=== PATIENT | female | born 1945 | race Caucasian/White ===

== ENCOUNTER 2023-02-05 10:05 | Inpatient (IN) | payer MEDICARE, OTHER ==
[~2023-02-05] VITALS: Ht 162.6 cm; Wt 83.9 kg
[2023-02-05 11:30] LABS: BASOPHILS % (AUTO) 0.1 % (0.0-2.0); EOSINOPHILS # (AUTO) 0.1 K/uL (0.0-0.7); EOSINOPHILS % (AUTO) 0.6 % (0.0-6.0); HEMATOCRIT 43 % (33-45); HEMOGLOBIN 13.9 g/dL (11.5-14.8); LYMPHOCYTES # (AUTO) 2.1 K/uL (0.8-4.8); LYMPHOCYTES % (AUTO) 19.1 % (20.0-44.0); MEAN CORPUSCULAR HEMOGLOBIN 29 PG (26.0-33.0); MEAN CORPUSCULAR HGB CONC 33 g/dl (31.0-36.0); MEAN CORPUSCULAR VOLUME 87 fL (82-100); MONOCYTES # (AUTO) 0.8 K/uL (0.1-1.30); MONOCYTES % (AUTO) 7.6 % (2.0-12.0); NEUTROPHILS # (AUTO) 7.9 K/uL (1.8-8.9); NEUTROPHILS % (AUTO) 72.6 % (43.0-81.0); PLATELET COUNT (AUTO) 197 K/uL (150-450); RED BLOOD CELL COUNT(AUTO) 4.86 MIL/uL (4.0-5.2); RED CELL DISTRIBUTION WIDTH 14.1 % (11.5-15.0); WHITE BLOOD COUNT (AUTO) 10.9 K/uL (4.3-11.0)
[2023-02-05 11:40] LABS: INR 0.96 (0.91-1.10); PARTIAL THROMBOPLASTIN TIME 26.9 SEC (24.3-34.3); PROTHROMBIN TIME 10.2 SECS (9.2-11.1)
[2023-02-05 11:44] LABS: ALANINE AMINOTRANSFERASE 26 U/L (12-78); ALBUMIN 3.5 g/dL (3.4-5.0); ALKALINE PHOSPHATASE 73 U/L (46-116); ASPARTATE AMINOTRANSFERASE 7 U/L (15-37); BILIRUBIN,DIRECT 0.1 mg/dL (0.0-0.2); BILIRUBIN,TOTAL 0.3 mg/dL (0.2-1.0); CALCIUM, SERUM 9.5 mg/dL (8.5-10.1); CARBON DIOXIDE 27 mmol/L (21-32); CHLORIDE 103 mmol/L (98-107); CREATININE 0.8 mg/dL (0.6-1.3); GLUCOSE 317 mg/dL (74-106); POTASSIUM 3.9 mmol/L (3.5-5.1); SODIUM SERUM 140 mmol/L (136-145); TOTAL PROTEIN, SERUM 7.5 g/dL (6.4-8.2); UREA NITROGEN, BLOOD 30 mg/dL (7-18)
[2023-02-05] MEDS ORDERED: ACET-868 PO (12:00)
[2023-02-05] MEDS ORDERED: BISA10SU11 RC (12:00)
[2023-02-05] MEDS ORDERED: CLON0.1T PO (12:00)
[2023-02-05] MEDS ORDERED: BENA20TA9 PO (12:00)
[2023-02-05] MEDS ORDERED: NA P133E RC (12:00)
[2023-02-05] MEDS ORDERED: DOCU-141 PO (12:00)
[2023-02-05] MEDS ORDERED: MELA3TAB41 PO (12:00)
[2023-02-05] MEDS ORDERED: MULT-447 PO (12:00)
[2023-02-05] MEDS ORDERED: POLY17PO4 PO (12:00)
[2023-02-05] MEDS ORDERED: AMLO-212 PO (12:00)
[2023-02-05] MEDS ORDERED: LACT-215 PO (12:00)
[2023-02-05] MEDS ORDERED: MAGN400O6 PO (12:00)
[2023-02-05] MEDS ORDERED: ROSU10TA2 PO (12:00)
[2023-02-05] MEDS ORDERED: FLUO10TA PO (12:00)
[2023-02-05] MEDS ORDERED: MEMA28CA PO (12:00)
[2023-02-05] MEDS ORDERED: GUAI100S11 PO (12:00)
[2023-02-05] MEDS ORDERED: DONE10TA44 PO (12:00)
[2023-02-05] MEDS ORDERED: ACETAMINOPHEN 325 MG TABLET PO PRN (13:30)
[2023-02-05] MEDS ORDERED: BISACODYL SUPP (10 MG) 10 MG/SUPP.RECT SUPP.RECT RC PRN (13:30)
[2023-02-05] MEDS ORDERED: GUAIFENESIN 300 MG/15 ML UDC PO PRN (13:30)
[2023-02-05] MEDS ORDERED: ONDANSETRON HCL/PF 4 MG/2 ML VIAL IVP PRN (13:30)
[2023-02-05] MEDS ORDERED: MAG HYDROX/AL HYDROX/SIMETH 30 ML UDC PO PRN (13:30)
[2023-02-05] MEDS ORDERED: MAGNESIUM HYDROXIDE 30 ML UDC PO PRN (13:30)
[2023-02-05] MEDS ORDERED: Z GUARD REMEDY 4 OZ OINT TP PRN (13:30)
[2023-02-05] MEDS ORDERED: DEXTROSE 50%-WATER 50 ML DISP.SYRIN IV PRN (14:00)
[2023-02-05] MEDS: IV 1/2NS 1000 ML 1,000 ML IV PRN (16:13)
[2023-02-05] MEDS: MEMANTINE HCL 5 MG TABLET PO SCH (16:17)
[2023-02-05] MEDS ORDERED: BOOST FOOD- BERRY 237 ML BOX PO SCH (17:00)
[2023-02-05] MEDS: ENSURE CLEAR 237 ML LIQUID (MIX BERRY) PO SCH (17:00)
[2023-02-05] MEDS ORDERED: BLOOD SUGAR DIAGNOSTIC 1 EACH STRIP VI SCH (17:30)
[2023-02-05 20:00] VITALS: BP 132/79; TEMP 98; O2SAT 100
[2023-02-05] MEDS: ATORVASTATIN 10 MG TABLET PO SCH (21:46)
[2023-02-05] MEDS: BENAZEPRIL HCL 20 MG TABLET PO SCH (21:46)
[2023-02-05] MEDS ORDERED: DONEPEZIL 5 MG TABLET PO SCH (22:00)
[2023-02-05] MEDS ORDERED: Medication Not On Formulary EA (Melatonin 3 MG) PO SCH (22:00)
[2023-02-06 04:00] VITALS: BP 130/70; TEMP 98; O2SAT 100
[2023-02-06] MEDS: IV 1/2NS 1000 ML 1,000 ML IV PRN (05:14)
[2023-02-06 06:58] LABS: BASOPHILS # (AUTO) 0.1 K/uL (0.0-0.2); BASOPHILS % (AUTO) 0.6 % (0.0-2.0); EOSINOPHILS # (AUTO) 0.2 K/uL (0.0-0.7); EOSINOPHILS % (AUTO) 1.9 % (0.0-6.0); HEMATOCRIT 44 % (33-45); HEMOGLOBIN 14.2 g/dL (11.5-14.8); LYMPHOCYTES # (AUTO) 1.8 K/uL (0.8-4.8); LYMPHOCYTES % (AUTO) 17.5 % (20.0-44.0); MEAN CORPUSCULAR HEMOGLOBIN 29 PG (26.0-33.0); MEAN CORPUSCULAR HGB CONC 32 g/dl (31.0-36.0); MEAN CORPUSCULAR VOLUME 88 fL (82-100); MONOCYTES # (AUTO) 0.8 K/uL (0.1-1.30); MONOCYTES % (AUTO) 7.8 % (2.0-12.0); NEUTROPHILS # (AUTO) 7.3 K/uL (1.8-8.9); NEUTROPHILS % (AUTO) 72.2 % (43.0-81.0); PLATELET COUNT (AUTO) 178 K/uL (150-450); RED BLOOD CELL COUNT(AUTO) 4.99 MIL/uL (4.0-5.2); RED CELL DISTRIBUTION WIDTH 14.4 % (11.5-15.0); WHITE BLOOD COUNT (AUTO) 10.1 K/uL (4.3-11.0)
[2023-02-06 07:22] LABS: ALBUMIN 3.5 g/dL (3.4-5.0); BILIRUBIN,TOTAL 0.5 mg/dL (0.2-1.0); CALCIUM, SERUM 9.3 mg/dL (8.5-10.1); CREATININE 0.7 mg/dL (0.6-1.3); POTASSIUM 3.7 mmol/L (3.5-5.1); TOTAL PROTEIN, SERUM 7.5 g/dL (6.4-8.2)
[2023-02-06 08:00] VITALS: BP 123/69; TEMP 97.7; O2SAT 95
[2023-02-06] MEDS ORDERED: DOCUSATE SODIUM 100 MG CAPSULE PO SCH (09:00)
[2023-02-06] MEDS: ENSURE CLEAR 237 ML LIQUID (MIX BERRY) PO SCH ×2 (09:44→17:00)
[2023-02-06] MEDS: AMLODIPINE BESYLATE 5 MG TABLET PO SCH (09:46)
[2023-02-06] MEDS: MULTIVIT W/MINERALS 1 TAB TABLET PO SCH (09:46)
[2023-02-06] MEDS: MEMANTINE HCL 5 MG TABLET PO SCH ×2 (09:46→16:12)
[2023-02-06] MEDS: Fluoxetine 10 mg capsule PO SCH (09:46)
[2023-02-06 16:00] VITALS: BP 133/76; TEMP 97.5; O2SAT 95
[2023-02-06] MEDS: BENAZEPRIL HCL 20 MG TABLET PO SCH (21:13)
[2023-02-06] MEDS: ATORVASTATIN 10 MG TABLET PO SCH (21:13)
[2023-02-07] VITALS: BP 122/69; TEMP 97.9; O2SAT 95
[2023-02-07] MEDS: IV 1/2NS 1000 ML 1,000 ML IV PRN ×2 (05:24→22:57)
[2023-02-07 07:15] LABS: HEMATOCRIT 42 % (33-45); HEMOGLOBIN 13.9 g/dL (11.5-14.8); MEAN CORPUSCULAR HEMOGLOBIN 29 PG (26.0-33.0); MEAN CORPUSCULAR HGB CONC 33 g/dl (31.0-36.0); MEAN CORPUSCULAR VOLUME 88 fL (82-100); RED BLOOD CELL COUNT(AUTO) 4.79 MIL/uL (4.0-5.2); RED CELL DISTRIBUTION WIDTH 14.6 % (11.5-15.0); WHITE BLOOD COUNT (AUTO) 8.7 K/uL (4.3-11.0)
[2023-02-07 07:16] LABS: BASOPHILS % (AUTO) 0.2 % (0.0-2.0); EOSINOPHILS # (AUTO) 0.2 K/uL (0.0-0.7); EOSINOPHILS % (AUTO) 2.5 % (0.0-6.0); LYMPHOCYTES % (AUTO) 22.6 % (20.0-44.0); MONOCYTES # (AUTO) 0.7 K/uL (0.1-1.30); MONOCYTES % (AUTO) 7.9 % (2.0-12.0); NEUTROPHILS # (AUTO) 5.8 K/uL (1.8-8.9); NEUTROPHILS % (AUTO) 66.8 % (43.0-81.0); PLATELET COUNT (AUTO) 165 K/uL (150-450)
[2023-02-07 07:40] LABS: CALCIUM, SERUM 8.5 mg/dL (8.5-10.1); CARBON DIOXIDE 26 mmol/L (21-32); CHLORIDE 101 mmol/L (98-107); CREATININE 0.7 mg/dL (0.6-1.3); GLUCOSE 219 mg/dL (74-106); POTASSIUM 3.4 mmol/L (3.5-5.1); SODIUM SERUM 137 mmol/L (136-145); UREA NITROGEN, BLOOD 20 mg/dL (7-18)
[2023-02-07 08:00] VITALS: BP 101/67; TEMP 98.2; O2SAT 95
[2023-02-07] MEDS: ENSURE CLEAR 237 ML LIQUID (MIX BERRY) PO SCH ×2 (08:19→17:04)
[2023-02-07] MEDS: Fluoxetine 10 mg capsule PO SCH (09:49)
[2023-02-07] MEDS: AMLODIPINE BESYLATE 5 MG TABLET PO SCH (09:49)
[2023-02-07] MEDS: MULTIVIT W/MINERALS 1 TAB TABLET PO SCH (09:49)
[2023-02-07] MEDS: MEMANTINE HCL 5 MG TABLET PO SCH ×2 (09:50→17:05)
[2023-02-07] MEDS ORDERED: POTASSIUM CHLORIDE 20 MEQ POWDER PACKET PO ONE (12:00)
[2023-02-07] MEDS: BLOOD SUGAR DIAGNOSTIC 1 EACH STRIP IN SCH ×3 (12:18→21:20)
[2023-02-07] MEDS: INSULIN REGULAR, HUMAN 100 UNIT/ML 3 ML VIAL SQ PRN ×3 (12:28→21:20)
[2023-02-07 16:00] VITALS: BP 124/63; TEMP 98; O2SAT 95
[2023-02-07 20:30] VITALS: BP 134/71; TEMP 98.4; O2SAT 96
[2023-02-07] MEDS: BENAZEPRIL HCL 20 MG TABLET PO SCH (21:06)
[2023-02-07] MEDS: ATORVASTATIN 10 MG TABLET PO SCH (21:06)
[2023-02-08 04:00] VITALS: BP 112/67; TEMP 97.7; O2SAT 96
[2023-02-08 05:44] LABS: BASOPHILS % (AUTO) 0.4 % (0.0-2.0); EOSINOPHILS # (AUTO) 0.2 K/uL (0.0-0.7); EOSINOPHILS % (AUTO) 2.4 % (0.0-6.0); HEMATOCRIT 39 % (33-45); HEMOGLOBIN 12.9 g/dL (11.5-14.8); LYMPHOCYTES # (AUTO) 2.1 K/uL (0.8-4.8); LYMPHOCYTES % (AUTO) 23.4 % (20.0-44.0); MEAN CORPUSCULAR HEMOGLOBIN 29 PG (26.0-33.0); MEAN CORPUSCULAR HGB CONC 33 g/dl (31.0-36.0); MEAN CORPUSCULAR VOLUME 87 fL (82-100); MONOCYTES # (AUTO) 0.8 K/uL (0.1-1.30); NEUTROPHILS # (AUTO) 5.7 K/uL (1.8-8.9); NEUTROPHILS % (AUTO) 64.8 % (43.0-81.0); PLATELET COUNT (AUTO) 166 K/uL (150-450); RED BLOOD CELL COUNT(AUTO) 4.51 MIL/uL (4.0-5.2); RED CELL DISTRIBUTION WIDTH 14.1 % (11.5-15.0); WHITE BLOOD COUNT (AUTO) 8.8 K/uL (4.3-11.0)
[2023-02-08 05:53] LABS: CALCIUM, SERUM 8.7 mg/dL (8.5-10.1); CARBON DIOXIDE 27 mmol/L (21-32); CHLORIDE 98 mmol/L (98-107); CREATININE 0.7 mg/dL (0.6-1.3); GLUCOSE 203 mg/dL (74-106); POTASSIUM 3.6 mmol/L (3.5-5.1); SODIUM SERUM 133 mmol/L (136-145); UREA NITROGEN, BLOOD 14 mg/dL (7-18)
[2023-02-08] MEDS: BLOOD SUGAR DIAGNOSTIC 1 EACH STRIP IN SCH ×2 (07:54→12:08)
[2023-02-08] MEDS: INSULIN REGULAR, HUMAN 100 UNIT/ML 3 ML VIAL SQ PRN ×2 (07:57→12:12)
[2023-02-08 08:00] VITALS: BP 123/66; TEMP 99.1; O2SAT 96
[2023-02-08] MEDS: Fluoxetine 10 mg capsule PO SCH (08:40)
[2023-02-08] MEDS: MULTIVIT W/MINERALS 1 TAB TABLET PO SCH (08:40)
[2023-02-08 08:41] VITALS: BP 123/66
[2023-02-08] MEDS: ENSURE CLEAR 237 ML LIQUID (MIX BERRY) PO SCH (08:41)
[2023-02-08] MEDS: AMLODIPINE BESYLATE 5 MG TABLET PO SCH (08:41)
[2023-02-08] MEDS: MEMANTINE HCL 5 MG TABLET PO SCH (08:41)
== END 2023-02-08 15:37 | DRG 125 ==
LOC: ER 10:38 → TELE1 14:50 → MEDSG1 15:41
PROVIDERS: ADMIT Internal Medicine; ATTEND Nurse Practitioner Family
DX: S00.12XA Contusion of left eyelid and periocular area, initial encounter (principal); F03.94 Unspecified dementia, unspecified severity, with anxiety; N17.9 Acute kidney failure, unspecified; F03.93 Unspecified dementia, unspecified severity, with mood disturbance; W19.XXXA Unspecified fall, initial encounter; Y92.129 Unspecified place in nursing home as the place of occurrence of the external cause; E86.0 Dehydration; E78.5 Hyperlipidemia, unspecified; F32.A Depression, unspecified; I10 Essential (primary) hypertension; F41.9 Anxiety disorder, unspecified; F09 Unspecified mental disorder due to known physiological condition; E11.9 Type 2 diabetes mellitus without complications
CPT/HCPCS: 36415; 70450-TC; 71045-TC; 80048-TC; 80053-TC; 80076-TC; 82962-TC; 84484-TC; 85025-TC; 85378-TC; 85730-TC; 86140-TC; 93307-TC; 93880-TC; 97110-TC; 97116-TC; 97530-TC; A4223; A6253; G0378; J1815; J3490